=== PATIENT | male | born 1955 | race Caucasian/White ===

== ENCOUNTER 2019-06-25 08:17 | Outpatient (RCR) | payer OTHER ==
[~2019-06-25 08:17] MED LIST: ALLEGRA 180MG180 MG PO; ASPIRIN 81M81 MG/TA2 PO; CRESTOR 10MG10 MG; FLONASEALLERGY NS; NITROSTAT0.4 MG/TAB SL; NORCO 325 MG-7.1 TAB PO; OMEGA-3 FISH1000 MG PO; ROXICODONE 55 MG/TAB PO; TOPROL XL 50MG50 MG; ZETIA 10MG TAB10 MG
== END 2019-06-26 08:50 | disposition home or self-care (01) ==
LOC: WSOH 08:17
DX: S16.1XXA Strain of muscle, fascia and tendon at neck level, initial encounter (principal); M50.30 Other cervical disc degeneration, unspecified cervical region; I10 Essential (primary) hypertension; E78.00 Pure hypercholesterolemia, unspecified; E11.9 Type 2 diabetes mellitus without complications; G57.90 Unspecified mononeuropathy of unspecified lower limb; Z98.890 Other specified postprocedural states; Z95.1 Presence of aortocoronary bypass graft; Y99.0 Civilian activity done for income or pay